=== PATIENT | male | born 1950 | race Caucasian/White ===

== ENCOUNTER 2017-03-11 09:17 | Day surgery (SDC) | payer MEDICARE ==
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
[~2017-03-11 09:17] MED LIST: Buffered Lidocaine 0.9% SYRIN* 5 ML/SYR SYRINGE INTRADERM ONE; ceFAZolin 2 GM PREMIX (*) 50 ML IVPB ONE
[2017-03-11] MEDS ORDERED: Midazolam* 1 MG/ML 2 ML VIAL (2 MG) ONE (10:05)
[2017-03-11] MEDS ORDERED: fentaNYL* 50 MCG/ML 2 ML VIAL (100 MCG VIAL) ONE ×2 (10:05→11:22)
[2017-03-11] MEDS ORDERED: Lidocaine 1% MPF wEPI 200,000* 30 ML SDV ONE (10:39)
[2017-03-11] MEDS ORDERED: Dexamethasone IV* 4 MG/ML 1 ML (4 MG) ONE (11:04)
[2017-03-11] MEDS ORDERED: Propofol* 10 MG/ML 20 ML BTL IV PUSH ONE (11:04)
[2017-03-11] MEDS ORDERED: Ondansetron INJ* 2 MG/ML VIAL ONE (11:04)
[2017-03-11] MEDS ORDERED: Lidocaine 2% PF * 5 ML VIAL ONE (11:04)
[2017-03-11] MEDS ORDERED: Scopolamine 1.5 mg* PATCH TRANSDERM PRN (11:27)
[2017-03-11] MEDS ORDERED: Acetaminophen TAB* 325 MG PO PRN (11:27)
[2017-03-11] MEDS ORDERED: PROCHLORPERAZINE INJ 5 MG/ML 2 ML VIAL IV PRN (11:27)
[2017-03-11] MEDS ORDERED: Ketorolac INJ* 30 MG/ML 1 ML VIAL ONE (11:28)
[2017-03-11] MEDS ORDERED: Bupivacaine 0.25% SDV* 30 ML ONE (12:45)
[2017-03-11] MEDS ORDERED: PROCHLORPERAZINE INJ 5 MG/ML 2 ML VIAL ONE (14:04)
[2017-03-11] MEDS ORDERED: HYDROmorphone INJ* 1 MG/ML CARPUJECT SYRINGE ONE (14:13)
[2017-03-11 15:18] VITALS: BP 137/87
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
== END 2017-03-11 15:18 | disposition home or self-care (01) ==
LOC: OR 09:17
PROVIDERS: ATTEND Orthopaedic Surgery
DX: M17.12 Unilateral primary osteoarthritis, left knee (principal); M11.262 Other chondrocalcinosis, left knee; M23.362 Other meniscus derangements, other lateral meniscus, left knee; M23.332 Other meniscus derangements, other medial meniscus, left knee; M25.762 Osteophyte, left knee; M94.262 Chondromalacia, left knee; M23.42 Loose body in knee, left knee; T84.84XA Pain due to internal orthopedic prosthetic devices, implants and grafts, initial encounter; Y79.2 Prosthetic and other implants, materials and accessory orthopedic devices associated with adverse incidents; Z87.891 Personal history of nicotine dependence
CPT/HCPCS: 88300; 88304; 88311; J0690; J0780; J1100; J1170; J1885; J2001; J2250; J2405; J2704; J3010

== ENCOUNTER 2017-04-08 05:56 | Day surgery (SDC) | payer MEDICARE ==
[~2017-04-08 05:56] MED LIST changes: -ceFAZolin 2 GM PREMIX (*) 50 ML IVPB ONE
[2017-04-08] MEDS ORDERED: Famotidine IV* 10 MG/ML 2 ML (20 mg) IV ONE (06:00)
[2017-04-08] MEDS ORDERED: Dexamethasone IV* 4 MG/ML 1 ML (4 MG) IV SLOW PU ONE (06:00)
[2017-04-08] MEDS ORDERED: Dexamethasone IV* 4 MG/ML 1 ML (4 MG) ONE (06:03)
[2017-04-08] MEDS ORDERED: Buffered Lidocaine 0.9% SYRIN* 5 ML/SYR SYRINGE ONE (06:03)
[2017-04-08] MEDS ORDERED: Famotidine IV* 10 MG/ML 2 ML (20 mg) ONE (06:03)
[2017-04-08] MEDS ORDERED: ceFAZolin 2 GM PREMIX (*) 2 GM/50 ML BAG IVPB ONE (06:03)
[2017-04-08] MEDS ORDERED: Bupivacaine 0.25% SDV* 30 ML ONE (07:26)
[2017-04-08] MEDS ORDERED: Lidocaine 1% MPF wEPI 200,000* 30 ML SDV ONE (07:26)
[2017-04-08] MEDS ORDERED: Bupivacaine 0.5% SDV PF* 30 ML VIAL ONE (07:27)
[2017-04-08] MEDS ORDERED: PROCHLORPERAZINE INJ 5 MG/ML 2 ML VIAL IV PRN (07:41)
[2017-04-08] MEDS ORDERED: fentaNYL* 50 MCG/ML 2 ML VIAL (100 MCG VIAL) IV PRN (07:41)
[2017-04-08] MEDS ORDERED: HYDROcodone/ACETAMIN 5-325 MG* 1 TAB PO PRN (07:41)
[2017-04-08] MEDS ORDERED: oxyCODONE/Acetamin 5/325 MG* TAB PO PRN (07:41)
[2017-04-08] MEDS ORDERED: Midazolam* 1 MG/ML 5 ML VIAL (5 MG) ONE (07:45)
[2017-04-08] MEDS ORDERED: fentaNYL* 50 MCG/ML 2 ML VIAL (100 MCG VIAL) ONE ×2 (07:45→08:48)
[2017-04-08] MEDS ORDERED: Lidocaine 2% PF * 5 ML VIAL ONE (07:53)
[2017-04-08] MEDS ORDERED: Propofol* 10 MG/ML 20 ML BTL IV PUSH ONE (07:53)
[2017-04-08] MEDS ORDERED: Ketorolac INJ* 30 MG/ML 1 ML VIAL ONE (08:04)
[2017-04-08] MEDS ORDERED: Ondansetron INJ* 2 MG/ML VIAL ONE (08:42)
[2017-04-08] MEDS ORDERED: oxyCODONE/Acetamin 5/325 MG* TAB ONE (09:56)
[2017-04-08 10:35] VITALS: BP 129/78
--- NOTE | 2017-04-09 03:14 | OP ---
CC: Lana Little MD * DATE OF OPERATION: 04/08/17 - [facility] DATE OF : 46 SURGEON: Dr. Kim. SENIOR CLINICAL STUDY MANAGER: Alyssa Arevalo NP ANESTHESIOLOGIST: Dr. Ortega. ANESTHESIA: General. PRE-OP DIAGNOSIS: Recurrent left inguinal hernia. POST-OP DIAGNOSIS: Recurrent left inguinal hernia. OPERATIVE PROCEDURE: Open left inguinal hernia repair. ESTIMATED BLOOD LOSS: Minimal. IV FLUIDS: Crystalloid. SPECIMENS: None. DRAINS: None. COMPLICATIONS: None. COUNTS: The instrument, needle, and sponge counts are correct. DESCRIPTION OF PROCEDURE: The patient was brought to the operating room and placed on the table supine. Sequential compression devices were placed on both lower extremities. A warming blanket was placed. The patient was administered general anesthesia. His abdomen and left groin were prepped and draped in a sterile fashion. Time-out was performed. Local anesthetic was infiltrated into the skin and soft tissue and an oblique incision was made in the left groin. Subcutaneous tissues were divided with cautery and crossing vein was cauterized and divided. External oblique aponeurosis was identified and there was protruding hernia through the superficial ring. The external oblique aponeurosis was incised in line of its fibers and through the superficial ring. Aponeurosis of the external oblique was reflected back upon itself and dissection revealed the ilioinguinal nerve which was preserved in the medial direction. The contents of the inguinal canal were isolated at the level of the pubic tubercle with a Shane drain. There was a large indirect inguinal hernia sac noted with a significant amount of attached adipose tissue. The sac was dissected free from the spermatic cord , which was preserved. The sac was reduced and there was quite a wide defect in the deep ring. A cone shaped mesh plug was fashioned from piece of polypropylene mesh and this was placed into the deep ring and sutured to the overlying musculature with 2-0 Vicryl suture. Next, an Onlay patch was fashioned and this was sutured to the pubic tubercle, shelving edge of the inguinal ligament into the conjoint tendon with interrupted 2-0 Vicryl. Tails were fashioned in the mesh line spermatic cord and tails were reapproximated with interrupted 2-0 Prolene suture. The tails were tucked beneath the external oblique aponeurosis and the ilioinguinal nerve was returned to its anatomic position. The external oblique aponeurosis was run closed with 2-0 Vicryl suture. Shannan's was closed with 3-0 Vicryl in an interrupted fashion. Skin was closed with 4-0 Monocryl in a subcuticular fashion. Steri-Strips were applied. The patient tolerated the procedure well and he was awakened and then transferred to Recovery in stable condition. [id number]/[facility] #: [id number] [facility] CENTERShivani
== END 2017-04-08 10:39 | disposition home or self-care (01) ==
LOC: OR 05:56
PROVIDERS: ATTEND Surgery
DX: K40.91 Unilateral inguinal hernia, without obstruction or gangrene, recurrent (principal); Z87.891 Personal history of nicotine dependence
CPT/HCPCS: A9270-GY; C1781; J0690; J1100; J1885; J2001; J2250; J2405; J2704; J3010

== ENCOUNTER 2017-08-12 12:16 | Emergency (ER) | payer MEDICARE ==
[2017-08-12 12:55] LABS: Hematocrit 43 % (42-52); Hemoglobin 14.6 g/dl (14.0-18.0); Mean Corpuscular HGB Conc 34 g/dl (31-36); Mean Corpuscular Hemoglobin 28 pg (27-31); Mean Corpuscular Volume 83 fL (80-94); Mean Platelet Volume 8 um3 (7.4-10.4); Platelet Count 332 10^3/ul (150-450); Red Blood Count 5.18 10^6/ul (4.0-5.4); Red Cell Distribution Width 14 % (10.5-15); White Blood Count 6.4 10^3/ul (3.5-10.8)
--- NOTE | 2017-08-12 13:18 | RAD ---
INDICATION: Pain and swelling. COMPARISON: None TECHNIQUE: Duplex interrogation of the Lowerextremity was performed. FINDINGS: Deep veins: The common femoral, great saphenous, profunda femoris, proximal, mid, and distal deep femoral, popliteal, posterior tibial, and peroneal veins are patent. There is normal compressibility, augmentation, and phasic flow. Superficial veins: There are no findings of superficial thrombophlebitis. Popliteal fossa:There is no evidence of a popliteal cyst. Soft tissues:There are no soft tissue abnormalities. IMPRESSION: Normal examination. No evidence of deep venous thrombosis
[2017-08-12 13:23] LABS: EGFR Non-African American 94.8 (>60)
[2017-08-12 13:41] VITALS: BP 132/70
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
== END 2017-08-12 13:40 | disposition home or self-care (01) ==
LOC: ED 12:16
DX: I73.9 Peripheral vascular disease, unspecified (principal); Z87.891 Personal history of nicotine dependence
CPT/HCPCS: 36415; 80048; 85027; 99282

== ENCOUNTER 2018-02-26 11:48 | Emergency (ER) | payer MEDICARE ==
[2018-02-26 11:55] VITALS: BP 130/75
[2018-02-26] MEDS ORDERED: Ketorolac INJ* 60 MG/2 ML VIAL IM ONE (12:05)
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
--- NOTE | 2018-02-26 12:33 | RAD ---
Indication: Lateral aspect LEFT foot pain for 2 days. Unable to bear weight on LEFT foot. No preceding injury. Comparison: No relevant prior exams available on the [facility] PACS for comparison. Technique: AP, lateral, and oblique views LEFT foot. Report: Negative for fracture, stress reaction, focal osseous lesions, or articular malalignment. Mild osteophytosis and joint space narrowing at the first metatarsal phalangeal joint. Small Achilles tendon insertion and plantar fascia origin bone spurs. Mild fusiform soft tissue thickening and calcification along the course of the noninsertional and insertional segments of the Achilles tendon. IMPRESSION: #. Mild osteoarthritis at the first metatarsal phalangeal joint. #. Small heel spurs. #. 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
== END 2018-02-26 12:45 | disposition home or self-care (01) ==
LOC: UCEAST 11:48
DX: M19.072 Primary osteoarthritis, left ankle and foot (principal); M77.32 Calcaneal spur, left foot; Z87.891 Personal history of nicotine dependence
CPT/HCPCS: 99212; G0463; J1885

== ENCOUNTER 2018-09-16 09:31 | Day surgery (SDC) | payer MEDICARE ==
[~2018-09-16 09:31] MED LIST changes: -Buffered Lidocaine 0.9% SYRIN* 5 ML/SYR SYRINGE INTRADERM ONE; +Buffered Lidocaine 1% SYRIN* 1 ML/SYRINGE INTRADERM ONE
[2018-09-16] MEDS ORDERED: Midazolam* 1 MG/ML 2 ML VIAL (2 MG) ONE ×2 (11:09→11:47)
[2018-09-16] MEDS ORDERED: fentaNYL* 50 MCG/ML 2 ML VIAL (100 MCG VIAL) ONE (11:09)
[2018-09-16] MEDS ORDERED: Ondansetron INJ* 2 MG/ML VIAL ONE (11:11)
[2018-09-16] MEDS ORDERED: acetaZOLAMIDE TAB* 250 MG ONE (12:12)
[2018-09-16] MEDS ORDERED: Proparacaine 0.5% OPHTH.SOL* 15 ML BTL ONE (12:12)
[2018-09-16] MEDS ORDERED: Lidocaine 2% EPI 1:200000 MPF*10-20 ML VIAL ONE (12:12)
[2018-09-16] MEDS ORDERED: Neomycin/Polymy/Dex OPTH.SUSP* MAXITROL 0.1% 5 ML ONE (12:12)
[2018-09-16] MEDS ORDERED: Lidocaine 1%* 5 ML VIAL ONE (12:12)
[2018-09-16] MEDS ORDERED: Povidone Iodine 5% OPTH* 30 ML BTL ONE (12:12)
[2018-09-16] MEDS ORDERED: Ketorolac 0.5% OPHTH (NF) 0.5 % 5 ML BTL ONE (12:12)
[2018-09-16] MEDS ORDERED: Cyclopentolate 1% OPTH.SOL* 2 ML BTL ONE (12:12)
[2018-09-16] MEDS ORDERED: Phenylephrine OPHTH SOL 2.5%* 2 ML ONE (12:12)
[2018-09-16 12:13] VITALS: BP 124/60
--- NOTE | 2018-09-16 14:34 | OP ---
OPERATIVE NOTE: DATE OF OPERATION: 09/16/18 - [facility] DATE OF : 46 SURGEON: Reggie Mccann M.D. PREOPERATIVE DIAGNOSIS: Cataract, right eye. POSTOPERATIVE DIAGNOSIS: Cataract, right eye. OPERATIVE PROCEDURE: Extracapsular cataract extraction with intraocular lens implant right eye. PROCEDURE: The patient was brought to the operating room after being given 1/2 % Alcaine with epinephrine drops in the preoperative area. The eye was prepped and draped in the usual sterile fashion. Sterile drape and eyelid speculum were placed. Again, topical 1/2% Alcaine with epinephrine was given. A paracentesis incision was made at the 9 o'clock position with the No.75 blade. Clear cornea incision 2.2 x 2.2-mm was created at the 12 o'clock position starting at the anterior limbus using the 2.2-mm keratome. The anterior chamber was irrigated with 0.4 mL of 1% non-preservative intracameral lidocaine and filled with DisCoVisc. A capsulorrhexis was completed using the cystotome and the Utrata forceps. Hydrodissection was performed with balanced salt solution. The lens nucleus was removed with the Phacoemulsification handpiece without incident. Cortex was removed with the irrigation-aspiration handpiece. The capsular bag was re-inflated using DisCoVisc and an [id number] 20 implant was inserted with the shooter. The irrigation-aspiration handpiece was used to remove all residual DisCoVisc. The eye was refilled with balanced salt solution and the wound checked and found to be watertight. Topical Maxitrol drops were given. [id number]/[facility] #: [id number] [facility] HOSPITALShivani
[2018-09-17] MEDS ORDERED: Acetaminophen TAB* 325 MG PO PRN (05:00)
== END 2018-09-16 12:25 | disposition home or self-care (01) ==
LOC: OREAST 09:31
PROVIDERS: ATTEND Specialist
DX: H25.811 Combined forms of age-related cataract, right eye (principal); Z87.891 Personal history of nicotine dependence
CPT/HCPCS: A9270-GY; J2250; J2405; J3010; V2632

== ENCOUNTER 2018-10-15 10:55 | Emergency (ER) | payer MEDICARE ==
--- OUTSIDE RECORDS SUMMARY | 2018-10-15 11:02 | XMS REPORT | Continuity of Care Document ---
:1950 External Reference #:[id number] Author Name Lewis Torres DO Address [address] [place] [id number] Care Team Providers Name Role Phone Sharif Cook FNP Care Team Information Cellophaner Unavailable Sharif Cook FNP Primary Care Physician Unavailable Payers Date Identification Numbers Payment Provider Subscriber Policy Number: [id number] Medicare [place] PayID: [id number] [facility] [address] [place] [address] Advance Directives Description No Information Available Problems Description No Information Family History Description No Information Available Social History Type Date Description Comments Sex Unknown Tobacco Use Start: Unknown End: Unknown Patient is a former smoker Smoking Status Reviewed: 10/13/18 Patient is a former smoker Allergies, Adverse Reactions, Alerts Description No Known Drug Allergies Medications Active Medications SIG Qnty Indications Ordering Provider Date Colyte With Flavor by mouth as 4000ml Lewis Torres DO 09/17/2018 Packs directed 240gm Solution Rec Ibuprofen 200 Unknown Immunizations Description No Information Available Vital Signs Date Vital Result Comment 10/13/2018 2:13pm Height 68 inches 5'8" Weight 199.00 lb BP Systolic 140 mmHg BP Diastolic 92 mmHg Heart Rate 77 /min BMI (Body Mass Index) 30.3 kg/m2 09/17/2018 3:49pm Height 68 inches 5'8" Weight 200.00 lb BMI (Body Mass Index) 30.4 kg/m2 Results Description No Information Available Procedures Description No Information Available Encounters Description No Information Available Plan of Treatment Future Appointment(s):12/11/2018 9:45 am - [facility] DO at [facility]10/13/2018 - Lewis Torres DOK40.30 Unilateral inguinal hernia, with obstruction, without gangrene, not specified as evyyuoijxM91.30 Diverticulosis of large intestine without perforation or abscess without xwhvbefqU04.010 Personal history of colonic polyps
--- OUTSIDE RECORDS SUMMARY | 2018-10-15 11:02 | XMS REPORT | Continuity of Care Document ---
:1950 External Reference #:[id number] Author Name Reggie Mccann M.D. Address [address] [place] [address] Care Team Providers Name Role Phone Sharif Cook Primary Care Physician Unavailable Payers Date Identification Numbers Payment Provider Subscriber Policy Number: [id number] Medicare - [place] PayID: [id number] [address] [place] [address] [place] [address] Advance Directives Description No Information Available Problems Active Problems Provider Date Combined form of senile cataract Reggie Mccann M.D. Onset: 09/04/2018 Presence of intraocular lens Reggie Mccann M.D. 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 Solution three times a day Ketorolac Tromethamine use one drop in 10ml Reggie Mccann, 09/11/2018 0.5% the right eye two M.D. Solution times a day, one drop left eye three times a day. taper as directed Prednisolone Acetate use one drop in 10ml Reggie Mccann, 09/11/2018 1% the right eye two M.D. Suspension times a day, one drop left eye three times a day. taper as directed Ibuprofen 200 2 tab q6 hours Unknown 200mg Tablets Cialis Unknown 2.5mg Tablets Oxycodone HCL take 1 tablet by Unknown 5mg Tablets mouth every 6 hours if needed for pain very rare Immunizations Description No Information Available Vital Signs Description No Information Available Results Description No Information Available Procedures Date Code Description Status 09/23/2018 61017 Extracapsular Cataract Extraction W/Intraocular Lens Completed 09/16/2018 23263 Extracapsular Cataract Extraction W/Intraocular Lens Completed 09/11/2018 38752 Ophthalmic Biometry Completed 09/11/2018 64727 Ophthalmic Biometry Completed 09/11/2018 19727 Scanning Computerized Opthalmic Diagnostic Posterior Seg Completed Retina 09/11/2018 86988 Computerized Corneal Topography Completed 09/11/2018 97057 Est Patient Intermediate Exam Completed 09/04/2018 08268 New Patient Comprehensive Exam Completed Encounters Description No Information Available Plan of Treatment Future Appointment(s):10/08/2018 8:45 am - Sunita Mares O.D. at Reggie Mccann MD, /09/2018 - Reggie Mccann M.D.Z96.1 Presence of intraocular lensComments:Smoking can increase the risk of developing or worsening any eye related disease, as well as affect your overall health. If you are a smoker, we strongly recommend that you quit.If you are not a smoker, we strongly recommend that you do not start. The artifical lens implant in your left eye appears to be stable. Since this is the first day after surgery, your left eye is still dilated and the vision will still be slightly blurry. The dilation will go down over the next day or two. Continue taking your eye drops as directed on the surgical calendar. If you have any questions, please call our office.
--- OUTSIDE RECORDS SUMMARY | 2018-10-15 11:02 | XMS REPORT | Continuity of Care Document ---
:1950 External Reference #:[id number] Author Name Sunita Mares O.D. Address [address] [facility] [place] [address] Care Team Providers Name Role Phone Sharif Cook Primary Care Physician Unavailable Payers Date Identification Numbers Payment Provider Subscriber Policy Number: [id number] Medicare - [facility] [place] PayID: [id number] [address] [place] [address] [place] [address] Advance Directives Description No Information Available Problems Active Problems Provider Date Combined form of senile cataract Reggie Mccann M.D. Onset: 09/04/2018 Presence of intraocular lens Reggie Mccann M.D. 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 0.5% Solution times a day, one drop left [...] hours if needed for pain very rare History Medications Ciprofloxacin HCL instill one drop 10ml Reggie Mccann, 09/11/2018 - 0.3% in the Left eye Ramses 10/07/2018 Solution three times a day Immunizations Description No Information Available Vital Signs Description No Information Available Results Description No Information Available Procedures Date Code Description Status 09/23/2018 11242 Extracapsular Cataract Extraction W/Intraocular Lens Completed 09/16/2018 08263 Extracapsular Cataract Extraction W/Intraocular Lens Completed 09/11/2018 54737 Ophthalmic Biometry Completed 09/11/2018 85551 Ophthalmic Biometry Completed 09/11/2018 47573 Scanning Computerized Opthalmic Diagnostic Posterior Seg Completed Retina 09/11/2018 69466 Computerized Corneal Topography Completed 09/11/2018 71752 Est Patient Intermediate Exam Completed 09/04/2018 76174 New Patient Comprehensive Exam Completed Encounters Description No Information Available Plan of Treatment 10/08/2018 - Sunita Mares O.D.Z96.1 Presence of intraocular lensComments: Your lens implant looks stable in both eyes at this time. You should be done, or almost done with your drops at this time according to your surgical calendar. I have given you a prescription for glasses. If you have any questions, please feel free to call our office at . +1.50 COMPUTER+2.00 READINGFollow up:1 Year Follow Up You can expect to have your eyes dilated at your next visit. If Dr. Mares orders any additional testing, it may require extra time. We recommend that you bring sunglasses, as dilation drops often make you light sensitive until they wear off. We always recommend you bring someone to drive you home if you are uncomfortable driving with your eyes dilated. If you have any questions before your next visit, feel free to call our office at .
--- OUTSIDE RECORDS SUMMARY | 2018-10-15 11:02 | XMS REPORT | Continuity of Care Document ---
:1950 External Reference #:[id number] Author Name Reggie Mccann M.D. Address [address] [facility] [place] [address] Care Team Providers Name Role Phone Sharif Cook Primary Care Physician Unavailable Payers Date Identification Numbers Payment Provider Subscriber Policy Number: [id number] Medicare - [place] PayID: [id number] [address] [place] [address] [place] [address] Advance Directives Description No Information Available Problems Active Problems Provider Date Combined form of senile cataract Reggie Mccann M.D. Onset: 09/04/2018 Presence of intraocular lens Reggie Mccann M.D. 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 Solution three times a day, start the day before surgery Ketorolac Tromethamine use one drop in 10ml Reggie Mccann, 09/11/2018 0.5% the right eye M.D. Solution three times a day, start the day before surgery Prednisolone Acetate 1 drops right eye 10ml Reggie Mccann, 09/11/2018 1% three times a M.D. Suspension day. taper as directed Ibuprofen 200 2 tab q6 hours Unknown 200mg Tablets Cialis Unknown 2.5mg Tablets Oxycodone HCL take 1 tablet by Unknown 5mg Tablets mouth every 6 hours if needed for pain very rare Immunizations Description No Information Available Vital Signs Description No Information Available Results Description No Information Available Procedures Date Code Description Status 09/16/2018 72168 Extracapsular Cataract Extraction W/Intraocular Lens Completed 09/11/2018 38854 Ophthalmic Biometry Completed 09/11/2018 99715 Ophthalmic Biometry Completed 09/11/2018 52385 Scanning Computerized Opthalmic Diagnostic Posterior Seg Completed Retina 09/11/2018 67299 Computerized Corneal Topography Completed 09/11/2018 01025 Est Patient Intermediate Exam Completed 09/04/2018 96399 New Patient Comprehensive Exam Completed Encounters Description No Information Available Plan of Treatment Future Appointment(s):10/08/2018 8:45 am - Sunita Mares O.D. at Reggie Mccann MD, 09/24/2018 12:15 pm - Reggie Mccann M.D. at Reggie Mccann MD , 09/23/2018 7:00 am - Reggie Mccann M.D. at Reggie Mccann MD, 2018 - Reggie Mccann M.D.H25.812 Combined forms of age-related cataract, left eyeComments:Smoking can increase the risk of developing or worsening any eye related disease, as well as affect your overall health. If you are a smoker , we strongly recommend that you quit.If you are not a smoker, we strongly recommend that you do not start. Dense cataract in the left eye.Follow up:For surgery. Please keep post op appointments as scheduled.Z96.1 Presence of intraocular lensComments:The artifical lens implant in your right eye appears to be stable. Since this is the first day after surgery, your right eye is still dilated and the vision will still be slightly blurry. The dilation will go down over the next day or two. Continue taking your eye drops as directed on the surgical calendar. If you have any questions, please call our office.
[2018-10-15 11:04] VITALS: BP 146/72
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
== END 2018-10-15 11:36 | disposition home or self-care (01) ==
LOC: UCEAST 10:55
DX: J32.9 Chronic sinusitis, unspecified (principal); I25.10 Atherosclerotic heart disease of native coronary artery without angina pectoris; Z87.891 Personal history of nicotine dependence
CPT/HCPCS: 99212; G0463

== ENCOUNTER 2018-11-26 16:06 | Emergency (ER) | payer MEDICARE ==
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
[2018-11-26 16:23] VITALS: BP 134/70
== END 2018-11-26 16:28 | disposition home or self-care (01) ==
LOC: UCEAST 16:06
DX: L03.116 Cellulitis of left lower limb (principal); Z87.891 Personal history of nicotine dependence
CPT/HCPCS: 99212; G0463

== ENCOUNTER 2018-12-11 06:01 | Day surgery (SDC) | payer MEDICARE ==
[~2018-12-11 06:01] MED LIST changes: +Famotidine IV* 10 MG/ML 2 ML (20 mg) IV ONE; +Lactated Ringers 1000 ML Bag* 1,000 ML IV SCH
[2018-12-11] MEDS ORDERED: Buffered Lidocaine 1% SYRIN* 1 ML/SYRINGE INTRADERM ONE (06:26)
[2018-12-11] MEDS ORDERED: Famotidine IV* 10 MG/ML 2 ML (20 mg) ONE (06:26)
[2018-12-11] MEDS ORDERED: Dexamethasone IV* 4 MG/ML 1 ML (4 MG) ONE (08:05)
[2018-12-11] MEDS ORDERED: Lidocaine 2% PF * 5 ML VIAL ONE (08:05)
[2018-12-11] MEDS ORDERED: Ondansetron INJ* 2 MG/ML VIAL ONE (08:05)
[2018-12-11] MEDS ORDERED: Propofol* 10 MG/ML 20 ML BTL ONE (08:05)
[2018-12-11] MEDS ORDERED: KETAMINE HCL* 50 MG/ML 10 ML VIAL ONE (08:06)
[2018-12-11] MEDS ORDERED: Midazolam* 1 MG/ML 5 ML VIAL (5 MG) ONE (08:06)
[2018-12-11] MEDS ORDERED: fentaNYL* 50 MCG/ML 2 ML VIAL (100 MCG VIAL) ONE (08:06)
[2018-12-11] MEDS ORDERED: Ondansetron INJ* 2 MG/ML VIAL IV PRN (08:12)
[2018-12-11] MEDS ORDERED: Naloxone* 0.4 MG/ML 1 ML VIAL IV PRN (08:12)
[2018-12-11] MEDS ORDERED: fentaNYL* 50 MCG/ML 2 ML VIAL (100 MCG VIAL) IV PRN (08:12)
[2018-12-11] MEDS ORDERED: EPHEDrine (Pressors)* 50 MG/ML VIAL ONE (08:31)
[2018-12-11 09:43] VITALS: BP 133/71
--- NOTE | 2018-12-11 19:35 | PRO ---
CC: Dr. Lana Little.* COLONOSCOPY REPORT: DATE OF PROCEDURE: 12/11/18 - [facility] PHYSICIAN: Dr. Lana Little. INDICATION FOR PROCEDURE: History of colon polyps. PROCEDURE PERFORMED: Complete colonoscopy to the terminal ileum. MEDICATIONS GIVEN: Please see anesthesia record. DESCRIPTION OF PROCEDURE: After the colonoscopy procedure including the risks, benefits, and alternatives with the risks not limited to perforation, surgery, missed lesions, and/or were explained to the patient, written informed consent was obtained, IV medication was given, and a rectal exam was performed. The rectal exam was unremarkable. The adult Olympus colonoscope was then inserted into the patient's rectum and advanced very carefully through the entirety of the colon into the cecal base. The cecal base was carefully inspected and normal in appearance. The terminal ileal valve was identified and intubated x4 to 5 cm and normal. The scope was then returned to the cecum, where a photograph was taken of the cecal cap. Over the next 8 minutes, the scope was carefully withdrawn, inspecting the mucosa. There were no recurrent polyps identified. On return to the rectum, direct views were normal. On retro -flexion, grade 1 internal hemorrhoids were appreciated. The scope was then removed from the patient. He tolerated the procedure well. He returned to the recovery room in stable condition. IMPRESSION: 1. Complete colonoscopy to the terminal ileum. 2. No recurrent polyps. 3. Good prep. 4. Grade 1 internal hemorrhoids. RECOMMENDATIONS: Repeat colonoscopy in 5 years' time given history of adenomas. [id number][place] [place] [id number] [place]
== END 2018-12-11 10:10 | disposition home or self-care (01) ==
LOC: OR 06:01
PROVIDERS: ATTEND Internal Medicine Gastroenterology
DX: K64.0 First degree hemorrhoids (principal); Z86.010 Personal history of colon polyps
CPT/HCPCS: J1100; J2250; J2405; J2704; J3010